=== PATIENT | female | born 1960 | race Caucasian/White ===

== ENCOUNTER 2016-09-14 08:10 | Emergency (ER) | payer OTHER ==
[2016-09-14 08:17] VITALS: TEMP 97.9; BMI 27.4
--- NOTE | 2016-09-14 08:44 | PDOC ---
History of Present Illness - General Chief Complaint: Shortness of Breath Stated Complaint: CHEST PAIN, SOB Time Seen by Provider: 09/14/16 08:25 History Source: Patient Exam Limitations: No Limitations - History of Present Illness Initial Comments: 09/14/16 08:49 came to emergency department with complaints of chest pains, palpitations, and a choking sensation. States this morning woke up approximately 05:00 with a choking sensation and cough with copious secretion pooling. This happens frequently and states started a proximal 3 months ago, Coinciding with the cold weather and her heat turning on in the house. She uses hjsg-jqi-[id number] medications, but has never used decongestants or antihistamines. Denies fever, ear or throat pain, but has chronic rhinitis/postnasal drainage. Has had recent URI, and has used 2 different courses of antibiotics with no resolved of any of the symptoms. HAs seen ear nose and throat doctor PMD no treatment or medication. Patient states with this choking incident, had a severe coughing fit which causes palpitations and pain that radiated to her right shoulder. States still has that persistent palpitation but does not feel significant pain. Patient denies nausea vomiting diarrhea constipation, no history of gallbladder problems, no history of cardiac disease. Although was in this emergency Department in 2014 with same type of incident with multiple testing and EKG with negative findings for cardiac disease. Was discharged with a diagnosis of anxiety and palpitations. Patient states since that time is been well. Last thorough physical exam was over a year ago. Timing/Duration: reports: just prior to arrival, constant, intermittent Severity: reports: mild, moderate Modifying Factors: improves with: coughing Associated Symptoms: reports: denies symptoms Past History - Travel Traveled outside of the country in the last 30 days: No Close contact w/someone who was outside of country & ill: No - Past Medical History Allergies/Adverse Reactions: Allergies Allergy/AdvReac Type Severity Reaction Status Date / Time No Known Allergies Allergy Verified 09/14/16 08:12 Home Medications: Ambulatory Orders Atorvastatin Ca [Lipitor] 20 mg PO HS 09/14/16 Cetirizine HCl/Pseudoephedrine [Allergy+Congestion Relf-D Tab] 1 each PO DAILY # 30 tab.er.12h 09/14/16 Anemia: No Asthma: No Cancer: No Cardiac Disorders: No CVA: No COPD: No CHF: No Dementia: No Diabetes: No GI Disorders: No Disorders: No HTN: No Hypercholesterolemia: Yes Liver Disease: No Seizures: No Thyroid Disease: No - Surgical History Abdominal Surgery: No Appendectomy: No Cardiac Surgery: No Cholecystectomy: No Lung Surgery: No Neurologic Surgery: No Orthopedic Surgery: No - Immunization History Immunization Up to Date: Yes - Psycho/Social/Smoking Cessation Hx Anxiety: No Suicidal Ideation: No Smoking History: Never smoked Have you smoked in the past 12 months: No Number of Cigarettes Smoked Daily: 0 Cigars Per Day: 0 Information on smoking cessation initiated: No Hx Alcohol Use: No Drug/Substance Use Hx: No Substance Use Type: None Hx Substance Use Treatment: No Review of Systems - Review of Systems Able to Perform ROS?: Yes Is the patient limited Bulgarian proficient: Yes Constitutional: Yes: Symptoms Reported, See HPI, Loss of Appetite, Malaise. No : Chills HEENTM: Yes: Symptoms Reported, See HPI, Nose Congestion, Other (nasal drainage) Respiratory: Yes: Symptoms reported, See HPI, Cough. No: Shortness of Breath, Wheezing Cardiac (ROS): Yes: Symptoms Reported, See HPI, Chest Pain, Palpitations ABD/GI: Yes: See HPI. No: Symptoms Reported : No: Symptoms Reported Musculoskeletal: No: Symptoms Reported Integumentary: No: Symptoms Reported All Other Systems: Reviewed and Negative *Physical Exam - Vital Signs Last Vital Signs Temp Pulse Resp BP Pulse Ox 97.9 F 108 H 18 167/100 100 09/14/16 08:13 09/14/16 08:13 09/14/16 08:13 09/14/16 08:13 09/14/16 08:13 - Physical Exam General Appearance: Yes: Nourished, Appropriately Dressed. No: Apparent Distress HEENT: positive: BERNA, Normal ENT Inspection, TMs Normal, Pharynx Normal (no redness, swelling, exudate however noted some clear posterior sinus drainage), Rhinorrhea (clear ). negative: Pharyngeal Erythema, Tonsillar Exudate, Sinus Tenderness Neck: positive: Supple. negative: Tender, Lymphadenopathy (R), Lymphadenopathy (L) Respiratory/Chest: positive: Lungs Clear, Normal Breath Sounds (no wheezing or retractions) Cardiovascular: positive: Regular Rhythm, Regular Rate Gastrointestinal/Abdominal: positive: Normal Bowel Sounds, Soft. 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 NML intact, Fully Oriented, Alert, Normal Mood/ Affect, Normal Response, Motor Strength 5/5 Heart Score/ECG Review - Electrocardiogram EKG: Normal - Age Age: 45-65 - Risk Factors Risk Factors Heart Score: Yes Hx Hypercholesterolemia - ECG Intrepretation Rhythm: Regular Rhythm - [place] Wil[place]: Normal - P and MD Prominent R with upright T in V1 (true posterior KS): No - QRS Q Wave Present: No - ECG Impressions Normal ECG: Yes Non-specific ST Elevation: No Ischemic Changes: No ED Treatment Course - LABORATORY CBC & Chemistry Diagram: 09/14/16 09:00 09/14/16 09:00 Progress Note - Progress Note Progress Note: Choking, shortness of breath, and palpitations. Probable chronic rhinitis with post nasal drainage. Due to palpitations will evaluate set of cardiac enzymes and EKG Medical Decision Making - Medical Decision Making 09/14/16 10:59 Patient's blood pressure now 132/79, states feels mildly improved but has continued postnasal drainage. Encouraged to do conservative methods for sinus drainage and will prescribe Zyrtec D to assist in decongestant. Up with Dr. Pizano whom she has seen in the past for reevaluation of the ENT *DC/Admit/Observation/Transfer Diagnosis at time of Disposition: Allergic rhinitis Qualifiers: Allergic rhinitis seasonality: unspecified seasonality Allergic rhinitis trigger: unspecified Qualified Code(s): J30.9 - Allergic rhinitis, unspecified - Discharge Dispostion Disposition: HOME Condition at time of disposition: Stable Admit: No - Prescriptions Prescriptions: Cetirizine HCl/Pseudoephedrine [Allergy+Congestion Relf-D Tab] 1 each PO DAILY # 30 tab.er.12h - Referrals Referrals: Lyndon Pizano MD [Staff Physician] - - Patient Instructions Printed Discharge Instructions: Allergic Rhinitis Additional Instructions: Rest, drink lots of fluids: Teas, water, soups Saltwater gargles. Consider humidifier in room at night Steamy showers/seem to face break up mucus Avoid contact with allergens, exposure to pollens, close windows on a windy day Lots of handwashing and good hygiene Continue wsqn-qoy-qfzenap medications for symptomatic relief- may use allergic eyedrops for itching I Continue antihistamines daily until pollen season is over; Zyrtec, Claritin, Marian during the daytime and Benadryl at nighttime as will make sleepy Tylenol or Motrin for fever and pain Followup with private physician in one to 2 days as needed Consider following up with an fatback trimmer/4th grade math teacher for skin testing and possible allergy shots Return to emergency department for worsened symptoms, fevers, dehydration - Post Discharge Activity Work/School Note: Back to Work
[2016-09-14 09:09] LABS: BASOPHIL 0.2 % (0-2.0); EOSINOPHIL 2.1 % (0-4.5); MCH 29.8 pg (25.7-33.7); MCHC 33.2 g/dl (32.0-36.0); MEAN CELL VOLUME 89.9 fl (80-96); MEAN PLT VOLUME 8.6 fl (7.5-11.1); NEUTROPHILS 72.6 % (42.8-82.8); PLATELET COUNT 172 K/MM3 (134-434); RDW 13.2 % (11.6-15.6); WHITE BLOOD COUNT 6.7 K/mm3 (4.0-10.0)
[2016-09-14 09:10] LABS: URINE APPEARANCE CLEAR; URINE BILIRUBIN NEGATIVE (NEGATIVE); URINE BLOOD 2+ (NEGATIVE); URINE COLOR STRAW; URINE GLUCOSE (UA) NEGATIVE (NEGATIVE); URINE KETONE NEGATIVE (NEGATIVE); URINE LEUK ESTERASE NEGATIVE (NEGATIVE); URINE NITRITE NEGATIVE (NEGATIVE); URINE PROTEIN NEGATIVE (NEGATIVE); URINE UROBILINOGEN NEGATIVE E.U./dl (0.2-1.0)
[2016-09-14 09:12] LABS: URINE MUCUS RARE; URINE RBC 2 /hpf (0-3); URINE WBC <1 /hpf (3-5)
[2016-09-14 09:37] LABS: ANION GAP 8 (8-16); BILIRUBIN,TOTAL 0.3 mg/dL (0.2-1.0); CALCIUM 9.3 mg/dL (8.5-10.1); CO2 30 mmol/L (21-32); CREATININE 0.9 mg/dL (0.55-1.02); GLUCOSE,RANDOM 99 mg/dL (74-106); SGOT/AST 17 U/L (15-37); SGPT/ALT 21 U/L (12-78); TOT PROT 7.4 g/dl (6.4-8.2)
[2016-09-14 09:40] LABS: ALK PHOS 94 U/L (45-117); TROPONIN I < 0.02 ng/ml (0.00-0.05)
--- NOTE | 2016-09-14 10:25 | EKG ---
Test Reason : Blood Pressure : / mmHG Vent. Rate : 089 BPM Atrial Rate : 089 BPM P-R Int : 162 ms QRS Dur : 076 ms QT Int : 348 ms P-R-T Axes : 062 -04 074 degrees QTc Int : 423 ms NORMAL SINUS RHYTHM LOW VOLTAGE QRS CANNOT RULE OUT ANTERIOR INFARCT , AGE UNDETERMINED ABNORMAL ECG WHEN COMPARED WITH ECG OF 13-AUG-2014 22:54, NO SIGNIFICANT CHANGE WAS FOUND Confirmed by LIONEL HALL, ARAM ([id number]) on 09/14/2016 10:25:21 AM Referred By: Confirmed By:ARAM FLOWERS MD
[2016-09-14 10:50] VITALS: BP 132/79; PULSE 72
== END 2016-09-14 11:40 | disposition home or self-care (01) ==
LOC: JER 08:10
DX: J30.9 Allergic rhinitis, unspecified (principal)
CPT/HCPCS: 36415; 71020-TC; 80053; 81003; 81015; 82550; 84484; 85025; 93005; 93010; 99284-25

== ENCOUNTER 2017-10-01 02:07 | Emergency (ER) | payer OTHER ==
[2017-10-01] MEDS ORDERED: ONDANSETRON 4 MG/2 ML VIAL IVPB ONE (02:26)
[2017-10-01] MEDS ORDERED: MECLIZINE HCL 25 MG TABLET (FP) PO ONE (02:26)
[2017-10-01] MEDS ORDERED: SODIUM CHLORIDE 1,000 ML IV STA (02:26)
[2017-10-01 02:30] VITALS: TEMP 97.7; BMI 28.5
--- NOTE | 2017-10-01 02:34 | PDOC ---
History of Present Illness - General History Source: Patient Exam Limitations: No Limitations - History of Present Illness Initial Comments: 10/01/17 05:24 Patient is a 57 year old female with a significant past medical history of HLD, hypertension, vertigo who presents to the ED with complaints of dizziness that began 2 days ago. Patient reports experiencing increased episodes of dizziness that she states is increased when turning her head to the left. She reports coming into the ED for further evaluation after checking her BP and noticed it was elevated despite being compliant with her medications. Denies chest pain, Sob. Denies nausea, vomiting. Denies fevers,chills. Denies contact with sick individuals, out of state travelling. Denies trauma to affected area. Denies any other symptoms. Allergies: None Social history: No smoking. No alcohol. No illicit drugs. Surgical history: None PMD: Dr. Sandip Greenberg <Rajan Sagastume - Last Filed: 10/01/17 05:24> - General History Source: Patient Exam Limitations: No Limitations <Ammon Ashton - Last Filed: 10/01/17 06:33> - General Stated Complaint: DIZZY Time Seen by Provider: 10/01/17 02:15 Past History <Rajan Sagastume - Last Filed: 10/01/17 05:24> - Past Medical History Anemia: No Asthma: No Cancer: No Cardiac Disorders: No CVA: No COPD: No CHF: No Dementia: No Diabetes: No GI Disorders: No Disorders: No HTN: No Hypercholesterolemia: Yes Liver Disease: No Seizures: No Thyroid Disease: No - Surgical History Abdominal Surgery: No Appendectomy: No Cardiac Surgery: No Cholecystectomy: No Lung Surgery: No Neurologic Surgery: No Orthopedic Surgery: No - Immunization History Immunization Up to Date: Yes - Suicide/Smoking/Psychosocial Hx Smoking History: Never smoked Have you smoked in the past 12 months: No Number of Cigarettes Smoked Daily: 0 Cigars Per Day: 0 Hx Alcohol Use: No Drug/Substance Use Hx: No Substance Use Type: None Hx Substance Use Treatment: No <Ammon Ashton - Last Filed: 10/01/17 06:33> - Past Medical History Allergies/Adverse Reactions: Allergies Allergy/AdvReac Type Severity Reaction Status Date / Time No Known Allergies Allergy Verified 10/01/17 02:30 Home Medications: Ambulatory Orders Diazepam [Valium] 5 mg PO BID #6 tablet MDD 2 10/01/17 Losartan Potassium [Cozaar] 100 mg PO DAILY 10/01/17 Meclizine HCl 25 mg PO Q6H PRN #20 tablet 10/01/17 Metoprolol Succinate 25 mg PO HS 10/01/17 Ondansetron HCl [Zofran] 4 mg PO Q8H PRN #15 tablet 10/01/17 Rosuvastatin Calcium [Crestor] 20 mg PO HS 10/01/17 Review of Systems - Review of Systems Able to Perform ROS?: Yes Comments:: 10/01/17 05:24 GENERAL/CONSTITUTIONAL: No fever or chills. No weakness. HEAD, EYES, EARS, NOSE AND THROAT: No change in vision. No ear pain or discharge. No sore throat. CARDIOVASCULAR: No chest pain or shortness of breath. RESPIRATORY: No cough, wheezing, or hemoptysis. GASTROINTESTINAL: No nausea, vomiting, diarrhea or constipation. GENITOURINARY: No dysuria, frequency, or change in urination. MUSCULOSKELETAL: No joint or muscle swelling or pain. No neck or back pain. SKIN: No rash NEUROLOGIC: +Dizziness. No headache, loss of consciousness, or change in strength/sensation. ENDOCRINE: No increased thirst. No abnormal weight change. HEMATOLOGIC/LYMPHATIC: No anemia, easy bleeding, or history of blood clots. ALLERGIC/IMMUNOLOGIC: No hives or skin allergy. <Rajan Sagastume - Last Filed: 10/01/17 05:24> *Physical Exam - Vital Signs Last Vital Signs Temp Pulse Resp BP Pulse Ox 97.7 F 81 19 153/92 100 10/01/17 02:28 10/01/17 02:28 10/01/17 02:28 10/01/17 02:28 10/01/17 02:54 - Physical Exam Comments: 10/01/17 05:24 GENERAL: Awake, alert, and fully oriented, in no acute distress HEAD: No signs of trauma EYES: PERRLA, EOMI, sclera anicteric, conjunctiva clear ENT: Auricles normal inspection, hearing grossly normal, nares patent, Moist mucosa NECK: Normal ROM, supple, no lymphadenopathy, JVD, or masses LUNGS: Breath sounds equal, clear to auscultation bilaterally. No wheezes, and no crackles HEART: Regular rate and rhythm, normal S1 and S2, no murmurs, rubs or gallops ABDOMEN: Soft, nontender, normoactive bowel sounds. No guarding, no rebound. No masses EXTREMITIES: Normal range of motion, no edema. No clubbing or cyanosis. No cords, erythema, or tenderness NEUROLOGICAL: CN II-XII intact, 5/5 strength upper and lower extremities, Sensation intact throughout all extremities, No pronator drift, Gait Normal, Speech Normal,Finger to nose intact, Heel to cavanaugh intact, Rapid alternating movements intact SKIN: Warm, Dry, normal turgor, no rashes or lesions noted. <Rajan Sagastume - Last Filed: 10/01/17 05:24> Heart Score/ECG Review #1 ECG reviewed & interpreted by me at: 03:00 10/01/17 03:05 NSR 66, low voltage QRS, no std/avinash, T wave flat III, QTC 427 msec <Ammon Ashton - Last Filed: 10/01/17 06:33> ED Treatment Course - LABORATORY CBC & Chemistry Diagram: 10/01/17 02:28 10/01/17 02:28 - ADDITIONAL ORDERS Additional order review: Laboratory Results 10/01/17 10/01/17 03:59 02:28 Sodium 142 Potassium 4.1 Chloride 104 Carbon Dioxide 26 Anion Gap 12 BUN 29 H Creatinine 1.1 H Creat Clearance w eGFR 50.84 Random Glucose 160 H Calcium 9.4 Total Bilirubin 0.2 D AST 20 ALT 24 Alkaline Phosphatase 103 Creatine Kinase 117 Troponin I < 0.02 Total Protein 7.5 Albumin 4.0 Urine Color Straw Urine Appearance Clear Urine pH 6.0 Ur Specific Pine 1.009 Urine Protein Negative Urine Glucose (UA) Negative Urine Ketones Negative Urine Blood 1+ H Urine Nitrite Negative Urine Bilirubin Negative Urine Urobilinogen Negative Ur Leukocyte Esterase Trace Urine WBC (Auto) 2 Urine RBC (Auto) <1 Ur Epithelial Cells Rare Urine Mucus Rare 10/01/17 02:28 RBC 4.30 MCV 89.2 MCHC 34.0 RDW 13.5 MPV 8.7 Neutrophils % 61.1 Lymphocytes % 27.9 D Monocytes % 9.0 Eosinophils % 1.7 Basophils % 0.3 - Medications Given in the ED: ED Medications Discontinued Medications Generic Name Dose Route Start Last Admin Trade Name Freq PRN Reason Stop Dose Admin Diazepam 5 mg 10/01/17 03:37 10/01/17 03:56 Valium Injection - IVPUSH 10/01/17 03:38 Not Given ONCE ONE Diazepam 5 mg 10/01/17 03:45 10/01/17 03:56 Valium - PO 10/01/17 03:46 5 mg ONCE ONE Administration Sodium Chloride 1,000 mls @ 1,000 mls/hr 10/01/17 02:26 10/01/17 02:43 Normal Saline - IV 10/01/17 03:25 1,000 mls/hr ASDIR STA Administration Meclizine HCl 50 mg 10/01/17 02:26 10/01/17 02:43 Antivert - PO 10/01/17 02:27 50 mg ONCE ONE Administration Ondansetron HCl 4 mg 10/01/17 02:26 10/01/17 02:44 Zofran Injection IVPB 10/01/17 02:27 4 mg ONCE ONE Administration <Rajan Sagastume - Last Filed: 10/01/17 05:24> - LABORATORY CBC & Chemistry Diagram: 10/01/17 02:28 10/01/17 02:28 <Ammon Ashton - Last Filed: 10/01/17 06:33> Medical Decision Making - Medical Decision Making 10/01/17 02:28 A portion of this note was documented by scribe services under my direction. I have reviewed the details of the note, within reason, and agree with the documentation with the following case summary and management plan written by me. Patient treated in the ED. Nursing notes are reviewed and incorporated into the medical decision-making. Vital signs reviewed. Peripheral IV access obtained by the nurse, laboratory studies are drawn and sent, reviewed and interpreted by myself. Vital Signs Temp Pulse Resp BP Pulse Ox 97.7 F 81 19 153/92 100 10/01/17 02:28 10/01/17 02:28 10/01/17 02:28 10/01/17 02:28 10/01/17 02:28 57-year-old female with past medical history of hypertension, hyperlipidemia, vertigo presents with vertigo-like symptoms. The patient reports that for last 2 days she's been having intermittent vertiginous-like symptoms. States that the symptoms are reproducible when she turns her head to the left. Denies chest pain or shortness of breath. Denies headache. Denies light headedness. Patient noted that her blood pressure is initially been elevated despite taking her blood pressure medications. Came into the ED for further evaluation. The patient is completely neurological intact but is a Ej-Hallpike maneuver positive suggestive of peripheral vertigo. We'll obtain basic labs and EKG. Treat vertigo-like symptoms and reassess. I suspect this is more peripheral than central. 10/01/17 06:26 CBC, BMP 10/01/17 02:28 10/01/17 02:28 CMP Sodium 142 mmol/L (136-145) 10/01/17 02:28 Potassium 4.1 mmol/L (3.5-5.1) 10/01/17 02:28 Chloride 104 mmol/L (98-107) 10/01/17 02:28 Carbon Dioxide 26 mmol/L (21-32) 10/01/17 02:28 Anion Gap 12 (8-16) 10/01/17 02:28 BUN 29 mg/dL (7-18) H 10/01/17 02:28 Creatinine 1.1 mg/dL (0.55-1.02) H 10/01/17 02:28 Creat Clearance w eGFR 50.84 (>60) 10/01/17 02:28 Random Glucose 160 mg/dL (74-106) H 10/01/17 02:28 Calcium 9.4 mg/dL (8.5-10.1) 10/01/17 02:28 Total Bilirubin 0.2 mg/dL (0.2-1.0) D 10/01/17 02:28 AST 20 U/L (15-37) 10/01/17 02:28 ALT 24 U/L (12-78) 10/01/17 02:28 Alkaline Phosphatase 103 U/L (45-117) 10/01/17 02:28 Creatine Kinase 117 IU/L (26-192) 10/01/17 02:28 Troponin I < 0.02 ng/ml (0.00-0.05) 10/01/17 02:28 Total Protein 7.5 g/dl (6.4-8.2) 10/01/17 02:28 Albumin 4.0 g/dl (3.4-5.0) 10/01/17 02:28 Urine Test Results Urine Color Straw 10/01/17 03:59 Urine Appearance Clear 10/01/17 03:59 Urine pH 6.0 (5.0-8.0) 10/01/17 03:59 Ur Specific Pine 1.009 (1.001-1.035) 10/01/17 03:59 Urine Protein Negative (NEGATIVE) 10/01/17 03:59 Urine Glucose (UA) Negative (NEGATIVE) 10/01/17 03:59 Urine Ketones Negative (NEGATIVE) 10/01/17 03:59 Urine Blood 1+ (NEGATIVE) H 10/01/17 03:59 Urine Nitrite Negative (NEGATIVE) 10/01/17 03:59 Urine Bilirubin Negative (NEGATIVE) 10/01/17 03:59 Ur Leukocyte Esterase Trace (NEGATIVE) 10/01/17 03:59 Ur Epithelial Cells Rare /HPF (FEW) 10/01/17 03:59 Urine Mucus Rare 10/01/17 03:59 10/01/17 06:26 CT head unremarkable. Pt reports feeling moderately better and would like to go home. I suspect that this is likely peripheral vertigo. Will have patient follow up with her doctor. Pt is also requesting a farm crops teacher for outpatient follow up for routine. Will give her a referral. I discussed the physical exam findings, ancillary test results and final diagnoses with the patient. I answered all of the patient's questions. The patient was satisfied with the care received and felt comfortable with the discharge plan and treatment plan. The patient will call their primary care physician within 24 hours to arrange follow-up and will return to the Emergency Department with any new, persistant or worsening symptoms. <Ammon Ashton - Last Filed: 10/01/17 06:33> *DC/Admit/Observation/Transfer - Attestations Scribe Attestion: 10/01/17 05:24 Documentation prepared by Rajan Sagastume, acting as medical pathology teacher for Ammon Ashton MD, /DO. <Rajan Sagastume - Last Filed: 10/01/17 05:24> - Discharge Dispostion Admit: No <Ammon Ashton - Last Filed: 10/01/17 06:33> Diagnosis at time of Disposition: Peripheral vertigo Qualifiers: Laterality: unspecified laterality Qualified Code(s): H81.399 - Other peripheral vertigo, unspecified ear - Discharge Dispostion Disposition: HOME Condition at time of disposition: Improved - Prescriptions Prescriptions: Diazepam [Valium] 5 mg PO BID #6 tablet MDD 2 Meclizine HCl 25 mg PO Q6H PRN #20 tablet PRN Reason: Vertigo Ondansetron HCl [Zofran] 4 mg PO Q8H PRN #15 tablet PRN Reason: Nausea - Referrals Referrals: Sandip Greenberg MD [Primary Care Provider] - Jeison Vincent MD [Staff Physician] - - Patient Instructions Printed Discharge Instructions: DI for Vertigo Additional Instructions: Take 1 tablet of meclizine every 6 hours as needed for dizziness. For severe dizziness, take a tablet of valium every 12 hours as needed. This medication may make you drowsy so please do not drive on this medication. Take zofran every 6 to 8 hours as needed for nausea. It may take several days before your symptoms improve. Please call your doctor to schedule an appointment. - Post Discharge Activity
[2017-10-01] MEDS ORDERED: ONDANSETRON 4 MG/2 ML VIAL ONE (02:35)
[2017-10-01] MEDS ORDERED: MECLIZINE HCL 25 MG TABLET (FP) ONE (02:35)
[2017-10-01 02:37] LABS: BASO % 0.3 % (0-2.0); EOS % 1.7 % (0-4.5); HEMATOCRIT 38.3 % (32.4-45.2); LYMPH % 27.9 % (8-40); MCH 30.3 pg (25.7-33.7); MEAN CELL VOLUME 89.2 fl (80-96); MEAN PLT VOLUME 8.7 fl (7.5-11.1); NEUT % 61.1 % (42.8-82.8); PLATELET COUNT 210 K/MM3 (134-434); RDW 13.5 % (11.6-15.6); WHITE BLOOD COUNT 6.4 K/mm3 (4.0-10.0)
[2017-10-01 03:07] LABS: ANION GAP 12 (8-16); BLOOD UREA NITROGEN 29 mg/dL (7-18); CALCIUM 9.4 mg/dL (8.5-10.1); CHLORIDE 104 mmol/L (98-107); CO2 26 mmol/L (21-32); GLUCOSE,RANDOM 160 mg/dL (74-106); POTASSIUM 4.1 mmol/L (3.5-5.1); SGOT/AST 20 U/L (15-37); SGPT/ALT 24 U/L (12-78); SODIUM 142 mmol/L (136-145)
[2017-10-01 03:12] LABS: ALK PHOS 103 U/L (45-117); BILIRUBIN,TOTAL 0.2 mg/dL (0.2-1.0); CREATININE 1.1 mg/dL (0.55-1.02); TOT PROT 7.5 g/dl (6.4-8.2)
[2017-10-01] MEDS ORDERED: diazePAM CARPU-JECT 10 MG/2 ML DISP.SYRIN IVPUSH ONE (03:37)
[2017-10-01] MEDS ORDERED: diazePAM 5 MG TABLET PO ONE (03:45)
[2017-10-01] MEDS ORDERED: diazePAM 5 MG TABLET ONE (03:46)
[2017-10-01 04:12] LABS: URINE APPEARANCE CLEAR; URINE BILIRUBIN NEGATIVE (NEGATIVE); URINE BLOOD 1+ (NEGATIVE); URINE COLOR STRAW; URINE GLUCOSE (UA) NEGATIVE (NEGATIVE); URINE KETONE NEGATIVE (NEGATIVE); URINE LEUK ESTERASE TRACE (NEGATIVE); URINE NITRITE NEGATIVE (NEGATIVE); URINE PROTEIN NEGATIVE (NEGATIVE); URINE UROBILINOGEN NEGATIVE mg/dL (0.2-1.0)
[2017-10-01 04:21] LABS: EPI CELLS RARE /HPF (FEW); URINE MUCUS RARE
[2017-10-01] MEDS ORDERED: KETOROLAC TROMETHAMINE 30 MG/1 ML VIAL IVPUSH ONE (04:26)
[2017-10-01] MEDS ORDERED: SODIUM CHLORIDE 1,000 ML IV SCH (04:30)
[2017-10-01] MEDS ORDERED: KETOROLAC TROMETHAMINE 30 MG/1 ML VIAL ONE (05:35)
[2017-10-01 06:51] VITALS: BP 123/84; PULSE 63
--- NOTE | 2017-10-01 11:41 | EKG ---
Test Reason : Blood Pressure : / mmHG Vent. Rate : 066 BPM Atrial Rate : 066 BPM P-R Int : 176 ms QRS Dur : 086 ms QT Int : 408 ms P-R-T Axes : 049 024 042 degrees QTc Int : 427 ms NORMAL SINUS RHYTHM LOW VOLTAGE QRS CANNOT RULE OUT ANTERIOR INFARCT (CITED ON OR BEFORE 14-SEP-2016) ABNORMAL ECG WHEN COMPARED WITH ECG OF 14-SEP-2016 08:18, NONSPECIFIC T WAVE ABNORMALITY NO LONGER EVIDENT IN LATERAL LEADS Confirmed by MD NAT, OSMANI ([id number]) on 10/01/2017 11:40:54 AM Referred By: Confirmed By:OSMANI JOHNS MD
== END 2017-10-01 06:50 | disposition home or self-care (01) ==
LOC: JER 02:07
PROC: 3E0333Z Introduction of Anti-inflammatory into Peripheral Vein, Percutaneous Approach (ICD-10-PCS; principal; 2017-10-01)
PROC: 3E033GC Introduction of Other Therapeutic Substance into Peripheral Vein, Percutaneous Approach (ICD-10-PCS; 2017-10-01)
PROC: 3E0337Z Introduction of Electrolytic and Water Balance Substance into Peripheral Vein, Percutaneous Approach (ICD-10-PCS; 2017-10-01)
DX: H81.399 Other peripheral vertigo, unspecified ear (principal)
CPT/HCPCS: 36415; 70450-TC; 80053; 81003; 81015; 82550; 84484; 85025; 87086; 93005; 93010; 96361; 96374; 96375; 99284-25

== ENCOUNTER → 2017-12-09 | Day surgery (SDC) | payer OTHER ==
--- NOTE | 2017-12-12 14:39 | PATH ---
Cytology Non-Gynecological Report Patient Name: RAHEL SEGOVIA [facility]. Rec. #: [id number] /Age/Gender: 1960 (Age: 57) / F Account: [id number] Location: RADIOLOGY [facility] Taken: 12/09/2017 Received: 12/10/2017 Reported: 12/12/2017 Physicians: Papa Brantley M.D. Specimen(s) Received BREAST,ULTRA SOUND GUIDED FNA Clinical History 1 cm, complicated cyst, left breast, 2:00 Postoperative diagnosis: Cyst disappeared. Final Diagnosis BREAST, LEFT, 2:00, CYST, ULTRASOUND GUIDED FINE NEEDLE ASPIRATION: SATISFACTORY FOR EVALUATION. NO MALIGNANT CELLS IDENTIFIED. CYSTIC BREAST LESION WITH FEW APOCRINE CELLS AND RARE DUCTAL CELLS. FEW APOCRINE CELLS AND RARE DUCTAL CELLS IN A BACKGROUND OF PROTEINACEOS DEBRIS AND DEGENERATED CELLS PRESENT. Electronically Signed Shey Connolly M.D. Gross Description Approximately 20 cc of brown fluid received fixed in 50% alcohol. Two cytofunnels prepared.
== END | disposition home or self-care (01) ==
LOC: JRADUS-SUR 11:19
PROVIDERS: ATTEND Internal Medicine
PROC: 0H9U3ZX Drainage of Left Breast, Percutaneous Approach, Diagnostic (ICD-10-PCS; principal; 2017-12-09)
DX: N60.02 Solitary cyst of left breast (principal)
CPT/HCPCS: 19000; 76942-TC; 88173

== ENCOUNTER 2018-06-10 13:50 | Emergency (ER) | payer OTHER ==
[2018-06-10 14:20] VITALS: BP 115/89; PULSE 98; TEMP 98; BMI 26.6
--- NOTE | 2018-06-10 14:25 | PDOC ---
History of Present Illness - General Stated Complaint: SWOLLEN UNDER THE BIG TOE Time Seen by Provider: 06/10/18 14:08 History Source: Patient Exam Limitations: No Limitations - History of Present Illness Initial Comments: 06/10/18 14:26 Patient states stepped on A Small Staple Approximately 2 Months Ago and Thought She Removed All of Foreign Body , However since That Time His Had Persistent Pain in the Area and Wonders/Worries Has Retained Foreign Body. no redness, swelling or drainage. Saw a Motorcycle Tester who trimmed and attempted unseccesful extraciton 06/11/18 14:08 Occurred: reports: other Severity: reports: mild, moderate Pain Location: reports: lower extremity (rigth foot at 1st MTP) Method of Injury: Yes: direct blow, other Associated Symptoms (Fall): denies symptoms Past History - Travel Traveled outside of the country in the last 30 days: No Close contact w/someone who was outside of country & ill: No - Past Medical History Allergies/Adverse Reactions: Allergies Allergy/AdvReac Type Severity Reaction Status Date / Time No Known Allergies Allergy Verified 06/10/18 14:10 Home Medications: Ambulatory Orders Losartan Potassium [Cozaar] 100 mg PO DAILY 10/01/17 Meclizine HCl 25 mg PO Q6H PRN #20 tablet 10/01/17 Metoprolol Succinate 25 mg PO HS 10/01/17 Ondansetron HCl [Zofran] 4 mg PO Q8H PRN #15 tablet 10/01/17 Rosuvastatin Calcium [Crestor] 20 mg PO HS 10/01/17 Anemia: No Asthma: No Cancer: No Cardiac Disorders: No CVA: No COPD: No CHF: No Dementia: No Diabetes: No GI Disorders: No Disorders: No HTN: No Hypercholesterolemia: Yes Liver Disease: No Seizures: No Thyroid Disease: No - Surgical History Abdominal Surgery: No Appendectomy: No Cardiac Surgery: No Cholecystectomy: No Lung Surgery: No Neurologic Surgery: No Orthopedic Surgery: No - Immunization History Immunization Up to Date: Yes - Suicide/Smoking/Psychosocial Hx Smoking History: Never smoked Have you smoked in the past 12 months: No Number of Cigarettes Smoked Daily: 0 Cigars Per Day: 0 Hx Alcohol Use: No Drug/Substance Use Hx: No Substance Use Type: None Hx Substance Use Treatment: No Review of Systems - Review of Systems Able to Perform ROS?: Yes Is the patient limited Japanese proficient: Yes Constitutional: Yes: See HPI. No: Symptoms Reported, Fever, Malaise HEENTM: No: Symptoms Reported Musculoskeletal: Yes: Symptoms Reported, See HPI Integumentary: Yes: Symptoms Reported, See HPI, Lesions, Other (pain to plantar aspect of right foot/ at 1,2nd MTP area) All Other Systems: Reviewed and Negative *Physical Exam - Physical Exam General Appearance: Yes: Nourished, Appropriately Dressed, Apparent Distress, Mild Distress HEENT: positive: BERNA, Normal ENT Inspection, TMs Normal, Pharynx Normal Musculoskeletal: positive: Normal Inspection. negative: Decreased Range of Motion Extremity: positive: Normal Capillary Refill, Normal Inspection, Normal Range of Motion, Tender (woth lesion/callus with central core/ no discoloration or noted foreign body. Is tender to touch / pressure ) Integumentary: positive: Normal Color, Dry, Warm. negative: Erythema, Swelling , Ecchymosis (but tender at site/ light touch ) Neurologic: positive: education research analyst II-XII NML intact, Fully Oriented, Alert, Normal Mood/ Affect, Normal Response, Motor Strength 5/5 Progress Note - Progress Note Progress Note: No FB noted in XRAY./ Not fluctuant or draining. Discussed with patient would need to soak foot as often as possible to help express any type of foreign body if actual. To avoid any home manipulation or attempts to extract. If symptoms persist for follow-up with either industrial arts public school teacher or foot surgeon for possible ultrasound versus flouroscopic intervention and extraction. *DC/Admit/Observation/Transfer Diagnosis at time of Disposition: Foot pain, right - Discharge Dispostion Disposition: HOME Condition at time of disposition: Stable Decision to Admit order: No - Referrals Referrals: Shey Castaneda MD [Primary Care Provider] - - Patient Instructions Printed Discharge Instructions: DI for Removal of Foreign Body From Skin Additional Instructions: Rest, elevate foot, avoid excessive walking Avoid heavy lifting or exercise until pain and swelling is resolved or until further directed Keep area highly elevated to reduce swelling Wear supportive shoes/tennis shoes-sneakers Soak foot 3-4 times a day for the next 2-3 days until healed in warm soapy water. Reapply bacitracin ointment and bulky dressing. May use foot cushion pads, (Dr. Mccray's corn pads at wound site to help lift and cushion the area until healed) Followup with private physician in one to 2 days if not improving, Return to emergency department for redness, swelling, worsened pain, or evidence of infection May use ibuprofen 2-200 mg tablets every 6 hours as needed for pain Your tetanus./Pertussis booster was updated today - Post Discharge Activity Forms/Work/School Notes: Back to Work
[2018-06-10] MEDS ORDERED: DIPHTH,PERTUSS(ACELL),TET 0.5 ML DISP.SYRIN IM ONE (14:27)
== END 2018-06-10 15:21 | disposition home or self-care (01) ==
LOC: JERFT 13:50
PROC: 3E0234Z Introduction of Serum, Toxoid and Vaccine into Muscle, Percutaneous Approach (ICD-10-PCS; principal; 2018-06-10)
DX: M79.674 Pain in right toe(s) (principal); M79.5 Residual foreign body in soft tissue; I10 Essential (primary) hypertension
CPT/HCPCS: 73630-TC-RT-FY; 90471; 90715; 99281-25

== ENCOUNTER 2018-10-28 11:55 | Emergency (ER) | payer OTHER ==
[2018-10-28 12:11] VITALS: TEMP 98.1; BMI 29.2
[2018-10-28] MEDS ORDERED: ALBUTEROL SO4 2.5/IPRATROPIUM 0.5 INH SOL 3 ML VIAL.NEB. NEB ONE ×2 (12:36→13:08)
[2018-10-28] MEDS ORDERED: ACETAMINOPHEN 325 MG TABLET (FP) PO ONE (12:36)
[2018-10-28] MEDS ORDERED: FAMOTIDINE 20 MG/50 ML IVPB 20 MG/50 ML MG IVPB ONE ×2 (12:36→13:08)
[2018-10-28] MEDS ORDERED: MAG HYDROX/AL HYDROX/SIMETH 30 ML UNIT-DOSE CUP PO ONE (12:36)
[2018-10-28] MEDS ORDERED: SODIUM CHLORIDE 0.9% 500 ML INFUS.BAG IV ONE (12:36)
--- NOTE | 2018-10-28 12:46 | PDOC ---
History of Present Illness - General Chief Complaint: Palpitations Stated Complaint: HEAD PAIN,PALPATATIONS Time Seen by Provider: 10/28/18 12:01 History Source: Patient Exam Limitations: No Limitations - History of Present Illness Initial Comments: 10/28/18 12:43 58 year old female with a significant past medical history of HLD, hypertension , vertigo who presents to the ED with 1 month of sore throat, hoarse voice and cough. She states it started with progressive cough, nonproductive, a/w subjective chills and malaise, diffuse myalgias, back aches and arthralgias. Over the past 1 week, she has been experiencing worsening cough, wheezing, hoarse voice, chest tightness with coughing episodes and deep inspiration, epigastric discomfort and pain worse with food (apple) and coughing. Tolerating oral and fluid intake. She went to [facility] Dr Castaneda 2 days ago, given Augmentin which she has taken x 2 days and cough syrup, which has made her cough worse. Today she had episode of frontal headache, followed by tingling in her fingers and hand spasms, palpitations, which lasted x 5 minutes, self resolved. During this time, no cp or sob, dizziness or syncope. +family history of CAD in brother. no personal history of cardiac or CVA conditions. Denies fever, dizziness, N, V, D, bladder and bowel problems, leg swelling, No travel. No new changes in medications. +sick contact, children with influenza ~ 1 month ago. Allergies: NKA Past Medical History: HLD, hypertension, vertigo Social history: Lives with family. No smoking. No alcohol. No illicit drugs. Surgical history: none PMD: [place] 10/28/18 12:44 10/28/18 12:44 Past History - Past Medical History Allergies/Adverse Reactions: Allergies Allergy/AdvReac Type Severity Reaction Status Date / Time No Known Allergies Allergy Verified 06/10/18 14:10 Home Medications: Ambulatory Orders Losartan Potassium [Cozaar] 100 mg PO DAILY 10/01/17 Rosuvastatin Calcium [Crestor] 20 mg PO HS 10/01/17 Albuterol Sulfate Inhaler - [Ventolin HFA Inhaler -] 2 inh PO Q4H PRN #1 inh Amoxicillin/Potassium Clav [Amox-Clav 875-125 mg Tablet] 1 each PO BID 10/28/18 Aspirin [ASA -] 81 mg PO ONCE PRN 10/28/18 Anemia: No Asthma: No Cancer: No Cardiac Disorders: No CVA: No COPD: No CHF: No Dementia: No Diabetes: No GI Disorders: No Disorders: No HTN: Yes Hypercholesterolemia: Yes Liver Disease: No Seizures: No Thyroid Disease: No - Surgical History Abdominal Surgery: No Appendectomy: No Cardiac Surgery: No Cholecystectomy: No Lung Surgery: No Neurologic Surgery: No Orthopedic Surgery: No - Immunization History Immunization Up to Date: Yes - Suicide/Smoking/Psychosocial Hx Smoking History: Never smoked Have you smoked in the past 12 months: No Number of Cigarettes Smoked Daily: 0 Cigars Per Day: 0 Information on smoking cessation initiated: No Hx Alcohol Use: No Drug/Substance Use Hx: No Substance Use Type: None Hx Substance Use Treatment: No Cardiac Specific PMH - Complaint Specific PMHX Pacemaker: No Review of Systems - Review of Systems Comments:: 10/28/18 12:43 Review of systems Constitutional: no fever, +subjective chills, +malaise HEENT: no dizziness.. No visual/hearing disturbances. +hoarse voice, +sore throat. No neck pain or ear pain. No mouth pain or difficulty swallowing CVS: no syncope. +palpitations, +chest tightness Resp: +cough, wheezing and SOB. no hemoptysis. Gastrointestinal: +epigastric AP, no diarrhea or vomiting. Genitourinary: no urinary sx, hematuria. No urgency, frequency or malodor MUSCULOSKELETAL: +back pain, myalgias, arthralgias. SKIN: no redness or skin changes, no discharge, no rash. No wounds. Hematologic: no easy bruising/bleeding. NEUROLOGIC: No dizziness, LOC or altered mental status. No focal weakness. + paresthesias, +headache. Allergic/Immunologic: no allergies All other systems reviewed and negative, or as documented in HPI. *Physical Exam - Vital Signs Last Vital Signs Temp Pulse Resp BP Pulse Ox 98.1 F 89 20 129/85 100 10/28/18 11:56 10/28/18 13:20 10/28/18 11:56 10/28/18 13:20 10/28/18 13:20 - Physical Exam Comments: 10/28/18 12:44 Physical exam: General: malaised appearing, anxious HEENT: NCAT, PERRL, EOMI, clear conjunctiva, anicteric, moist mucus membranes, clear oropharynx, no oral lesions.. +hoarse voice, normal uvula and midline, no trismus, dentition intact. Tonsils without erythema swelling or exudates. Neck: neck supple, FROM Resp: CTAB, normal and even respirations, no respiratory distress CVS: RRR, no murmurs, 2+ peripheral pulses throughout, no peripheral edema Abdomen: soft, nondistended. no peritoneal signs. No CVAT. +mild epigastric TTP no rebound or guarding Back: nontender, normal inspection and ROM MSK: no edema, ROJAS x4, ROM intact. No clubbing or cyanosis. normal bulk and tone. Neuro: alert, no focal neuro deficits. Skin: warm and well perfused, cap refill <2 sec, normal color, no rash Heart Score/ECG Review - History History: Slightly suspicious - Electrocardiogram EKG: Non specific repolarization disturbance - Age Age: 45-65 - Risk Factors Risk Factors Heart Score: Yes Hx Hypercholesterolemia, Yes Hx Hypertension Based on the list above the patient has:: 1-2 risk factors - Troponin Troponin: </= normal limit - Score Heart Score - Total: 3 #1 ECG reviewed & interpreted by me at: 12:00 General ECG Interpretation: Sinus Rhythm 10/28/18 12:46 EKG normal sinus rhythm at 97 bpm, no interval abnormalities, narrow QRS, ST and T wave segments and morphology normal. Nonspecific T wave abnormalities ED Treatment Course - LABORATORY CBC & Chemistry Diagram: 10/28/18 13:04 10/28/18 13:04 - ADDITIONAL ORDERS Additional order review: Laboratory Results 10/28/18 10/28/18 13:04 13:04 Sodium 134 L Potassium 4.2 Chloride 101 Carbon Dioxide 26 Anion Gap 7 L BUN 16 Creatinine 0.9 Creat Clearance w eGFR 63.87 Random Glucose 115 H Calcium 9.3 Total Bilirubin 0.7 AST 23 ALT 17 Alkaline Phosphatase 72 Troponin I < 0.03 Total Protein 7.2 Albumin 4.2 10/28/18 13:04 RBC 4.30 MCV 90.1 MCHC 32.7 RDW 12.5 MPV 8.6 - RADIOLOGY Radiology Studies Ordered: Category Date Time Status CHEST PA & LAT [RAD] Stat Radiology 10/28/18 12:36 Completed - Medications Given in the ED: ED Medications Discontinued Medications Generic Name Dose Route Start Last Admin Trade Name Yuko PRN Reason Stop Dose Admin Acetaminophen 975 mg 10/28/18 12:36 10/28/18 13:08 Tylenol - PO 10/28/18 12:37 975 mg ONCE ONE Administration Al Hydroxide/Mg Hydroxide 30 ml 10/28/18 12:36 10/28/18 13:06 Mylanta Oral Suspension - PO 10/28/18 12:37 30 ml ONCE ONE Administration Albuterol/Ipratropium 1 amp 10/28/18 12:36 10/28/18 13:06 Duoneb - NEB 10/28/18 12:37 1 amp ONCE ONE Administration Famotidine/Sodium Chloride 20 mg in 50 mls @ 100 mls/hr 10/28/18 12:36 13:06 Pepcid 20 Mg Premixed Ivpb - IVPB 10/28/18 13:05 100 mls/hr ONCE ONE Administration Sodium Chloride 1,000 ml 10/28/18 12:36 10/28/18 13:06 Normal Saline - IV 10/28/18 12:37 1,000 ml ONCE ONE Administration Medical Decision Making - Medical Decision Making 10/28/18 12:45 See HPI for details Vital signs reviewed, wnl. no fever, nontoxic appearing. Prior notes reviewed, including admissions, discharges and consultations. laboratory results and imaging reviewed, basic labs and lytes wnl CXR_clear, no acute pathology Cardiac panel_neg trop, less likely cardiac EKG normal sinus rhythm at 97 bpm, no interval abnormalities, narrow QRS, ST and T wave segments and morphology normal. Nonspecific T wave abnormalities ED course - duonebs x1 - pepcid, GI cocktail and IVF - likely viral syndrome, out of tamiflu benefit, defer testing - clinically improved, remains well, no VS derangements or hypoxia, comfortable and no acute events. comfortable with discharge. supportive care, rx albuterol inhaler use rest and hydration advised Dispo: Pt informed of my clinical impression, treatment recommendations and disposition plan. All questions answered to patient's satisfaction and expressed understanding and comfort with this. Reasons for returning to the ED sooner discussed with the patient otherwise, follow up with primary care physician. At the time of discharge, the patient is alert, clinically improved, tolerating po and verbalizes understanding of instructions. Patient does not suffer from an acute life-threatening medical condition at this time she is safe for outpatient follow-up. 10/28/18 14:16 *DC/Admit/Observation/Transfer Diagnosis at time of Disposition: URI (upper respiratory infection), Palpitation - Discharge Dispostion Disposition: HOME Condition at time of disposition: Improved Decision to Admit order: No - Prescriptions Prescriptions: Albuterol Sulfate Inhaler - [Ventolin HFA Inhaler -] 2 inh PO Q4H PRN #1 inh PRN Reason: Cough - Referrals Referrals: Shey Castaneda MD [Non Staff, Medical] - - Patient Instructions Printed Discharge Instructions: DI for Cough -- Adult, DI for Viral Upper Respiratory Infection -- Adult, DI for Acute Bronchitis, DI for Palpitations Additional Instructions: salt water gargles and warm lemon tea is appropriate as well for soothing qualities for sore throat/cough. minimize spread of infection given contagious nature, and cover your mouth and wash your hands adequately with soap and water. Stay well hydrated and rest. May use the albuterol inhaler every 4-6 hours as needed for cough and breathing to clear up your airways. Return precautions include respiratory distress, difficulty breathing, chest pain, lethargy, confusion, dehydration, high fevers or pain. continue to take your medications as instructed, your chest x ray was clear so this is unlikely pneumonia. - Post Discharge Activity
[2018-10-28] MEDS ORDERED: MAG HYDROX/AL HYDROX/SIMETH 30 ML UNIT-DOSE CUP ONE (13:08)
[2018-10-28] MEDS ORDERED: ACETAMINOPHEN 325 MG TABLET (FP) ONE (13:08)
[2018-10-28 13:21] VITALS: BP 129/85; PULSE 89
[2018-10-28 13:35] LABS: HEMATOCRIT 38.7 % (32.4-45.2); HEMOGLOBIN 12.7 GM/dl (10.7-15.3); MCH 29.5 pg (25.7-33.7); MCHC 32.7 g/dl (32.0-36.0); MEAN CELL VOLUME 90.1 fl (80-96); MEAN PLT VOLUME 8.6 fl (7.5-11.1); PLATELET COUNT 241 K/MM3 (134-434); RDW 12.5 % (11.6-15.6); WHITE BLOOD COUNT 4.9 K/mm3 (4.0-10.8)
[2018-10-28 13:50] LABS: ALBUMIN 4.2 g/dl (3.4-5.0); ALK PHOS 72 U/L (45-117); ANION GAP 7 MMOL/L (8-16); BILIRUBIN,TOTAL 0.7 mg/dl (0.2-1); BLOOD UREA NITROGEN 16 mg/dl (7-18); CALCIUM 9.3 mg/dl (8.5-10); CHLORIDE 101 mmol/L (98-107); CO2 26 mmol/L (21-32); CREATININE 0.9 mg/dl (0.55-1.3); GLUCOSE,RANDOM 115 mg/dl (74-106); POTASSIUM 4.2 mmol/L (3.5-5.1); SGOT/AST 23 U/L (15-37); SGPT/ALT 17 U/L (13-61); SODIUM 134 mmol/L (136-145); TOT PROT 7.2 g/dl (6.4-8.2)
--- NOTE | 2018-10-30 11:25 | EKG ---
Test Reason : Blood Pressure : / mmHG Vent. Rate : 097 BPM Atrial Rate : 097 BPM P-R Int : 202 ms QRS Dur : 078 ms QT Int : 372 ms P-R-T Axes : 053 004 049 degrees QTc Int : 472 ms NORMAL SINUS RHYTHM LOW VOLTAGE QRS NONSPECIFIC ST ABNORMALITY ABNORMAL ECG WHEN COMPARED WITH ECG OF 01-OCT-2017 02:59, NO SIGNIFICANT CHANGE WAS FOUND Confirmed by ARAM FLOWERS MD ([id number]) on 10/30/2018 11:25:16 AM Referred By: YVETTE Confirmed By:ARAM FLOWERS MD
== END 2018-10-28 14:42 | disposition home or self-care (01) ==
LOC: FER 11:55
PROC: 3E0F7GC Introduction of Other Therapeutic Substance into Respiratory Tract, Via Natural or Artificial Opening (ICD-10-PCS; principal; 2018-10-28)
PROC: 3E0337Z Introduction of Electrolytic and Water Balance Substance into Peripheral Vein, Percutaneous Approach (ICD-10-PCS; 2018-10-28)
DX: R49.0 Dysphonia (principal); J06.9 Acute upper respiratory infection, unspecified; E78.5 Hyperlipidemia, unspecified; I10 Essential (primary) hypertension; R42 Dizziness and giddiness
CPT/HCPCS: 36415; 71046-TC-FY; 80053; 84484; 85027; 93005; 99284-25

== ENCOUNTER 2022-12-18 20:02 | Emergency (ER) | payer OTHER ==
[2022-12-18 20:11] VITALS: TEMP 97.7; BMI 29.2
[2022-12-18] MEDS ORDERED: ACETAMINOPHEN 1000 MG/100 ML BAG IVPB ONE (20:59)
[2022-12-18] MEDS ORDERED: SODIUM CHLORIDE 500 ML IV STA (20:59)
[2022-12-18] MEDS ORDERED: FAMOTIDINE 20 MG/50 ML IVPB 20 MG/50 ML MG IVPB ONE ×2 (20:59→21:07)
[2022-12-18] MEDS ORDERED: ONDANSETRON 4 MG/2 ML VIAL IVPUSH ONE (21:01)
[2022-12-18] MEDS ORDERED: MAG HYDROX/AL HYDROX/SIMETH 30 ML UNIT-DOSE CUP PO ONE (21:02)
[2022-12-18] MEDS ORDERED: ACETAMINOPHEN INJECTION 100 ML IVPB ONE (21:07)
[2022-12-18] MEDS ORDERED: MAG HYDROX/AL HYDROX/SIMETH 30 ML UNIT-DOSE CUP ONE (21:07)
[2022-12-18] MEDS ORDERED: ONDANSETRON 4 MG/2 ML VIAL ONE (21:07)
[2022-12-18] MEDS ORDERED: SUCRALFATE 1 GM/10 ML UNIT DOSE CUPS PO ONE (21:26)
[2022-12-18 21:46] LABS: HEMOGLOBIN 12.6 GM/dL (10.7-15.3); RBC 4.25 M/mm3 (3.60-5.2); WHITE BLOOD COUNT 6.2 K/mm3 (4.0-10.0)
[2022-12-18 21:47] LABS: BASO % 0.3 % (0-2.0); EOS % 0.4 % (0-4.5); HEMATOCRIT 37.5 % (32.4-45.2); LYMPH % 17.7 % (8-40); MCH 29.6 pg (25.7-33.7); MCHC 33.5 g/dl (32.0-36.0); MEAN CELL VOLUME 88.4 fl (80-96); MEAN PLT VOLUME 8.7 fl (7.5-11.1); MONO % 5.5 % (3.8-10.2); NEUT % 76.1 % (42.8-82.8); PLATELET COUNT 228 10^3/uL (134-434); RDW 13.9 % (11.6-15.6)
[2022-12-18 22:12] LABS: POTASSIUM 4.2 mmol/L (3.5-5.1)
[2022-12-18 22:13] LABS: ALBUMIN 4.1 g/dl (3.4-5.0); CALCIUM 9.7 mg/dL (8.5-10.1)
[2022-12-18 22:17] LABS: CREATININE 0.9 mg/dL (0.55-1.3)
[2022-12-18 22:19] LABS: BILIRUBIN,TOTAL 0.4 mg/dL (0.2-1)
[2022-12-18 23:30] VITALS: BP 130/76; PULSE 77; RESP 15
== END 2022-12-19 01:09 | disposition home or self-care (01) ==
LOC: JER 20:02
PROC: 3E033NZ Introduction of Analgesics, Hypnotics, Sedatives into Peripheral Vein, Percutaneous Approach (ICD-10-PCS; principal; 2022-12-18)
PROC: 3E033GC Introduction of Other Therapeutic Substance into Peripheral Vein, Percutaneous Approach (ICD-10-PCS; principal; 2022-12-18)
PROC: 3E0337Z Introduction of Electrolytic and Water Balance Substance into Peripheral Vein, Percutaneous Approach (ICD-10-PCS; principal; 2022-12-18)
DX: R10.13 Epigastric pain (principal); R68.83 Chills (without fever); R00.2 Palpitations; R07.89 Other chest pain; R11.0 Nausea; Z20.822 Contact with and (suspected) exposure to COVID-19
CPT/HCPCS: 0241U-QW; 36415; 71045-TC-FY; 74177-TC; 80053; 83690; 83735; 84484; 85025; 93005; 93010; 99285-25; Q9967